=== PATIENT | male | born 1940 | race Caucasian/White ===

== ENCOUNTER → 2016-10-02 | Outpatient (CLI) | payer OTHER, BC ==
[~2016-10-02] MED LIST: AMLODIPINE BESYL5 M1 PO; ASPIR 8181 MG PO; CENTRUM SILVER1 EAC2 PO; FISH OIL 1,001000 M2 PO; GAVISCON ES CH1 EAC1 PO; NORCO 5-325 TA1 EACH PO; PRAVACHOL20 MG PO; RYTHMOL SR225 MG PO; SENOKOT-S1 TA1 PO; VITAMINC500 PO
[2016-10-02 08:07] LABS: CREATININE 1.2 mg/dL (0.6-1.3)
== END ==
LOC: CAT 07:25
PROVIDERS: Internal Medicine Cardiovascular Disease
DX: I71.4 Abdominal aortic aneurysm, without rupture (principal)

== ENCOUNTER → 2016-12-23 | Outpatient (CLI) | payer OTHER, BC ==
[2016-12-23 10:07] LABS: CREATININE 1.4 mg/dL (0.7-1.3)
== END ==
LOC: CAT 09:40
PROVIDERS: Nuclear Medicine Nuclear Cardiology
DX: I71.4 Abdominal aortic aneurysm, without rupture (principal); Z95.828 Presence of other vascular implants and grafts

== ENCOUNTER → 2017-01-27 | Outpatient (CLI) | payer OTHER, BC | LOC: ULTRA 09:21 | DX: M79.89 Other specified soft tissue disorders (principal) ==

== ENCOUNTER → 2017-06-29 | Outpatient (CLI) | payer OTHER, BC ==
[2017-06-29 08:58] LABS: CREATININE 1.2 mg/dL (0.7-1.3)
== END ==
LOC: CAT 07:00
PROVIDERS: Nuclear Medicine Nuclear Cardiology
DX: N26.1 Atrophy of kidney (terminal) (principal); I71.4 Abdominal aortic aneurysm, without rupture; Z95.828 Presence of other vascular implants and grafts

== ENCOUNTER → 2018-04-19 | Outpatient (CLI) | payer OTHER, BC | LOC: ULTRA 11:05 | DX: N63.10 Unspecified lump in the right breast, unspecified quadrant (principal); N64.4 Mastodynia ==

== ENCOUNTER → 2018-05-18 | Outpatient (CLI) | payer OTHER, BC ==
[2018-05-18 08:01] LABS: CREATININE 1.4 mg/dL (0.7-1.3)
== END ==
LOC: CAT 07:02
PROVIDERS: Nuclear Medicine Nuclear Cardiology
DX: I71.4 Abdominal aortic aneurysm, without rupture (principal); N26.1 Atrophy of kidney (terminal); N28.0 Ischemia and infarction of kidney; M47.816 Spondylosis without myelopathy or radiculopathy, lumbar region; E78.00 Pure hypercholesterolemia, unspecified; I48.91 Unspecified atrial fibrillation; Z95.828 Presence of other vascular implants and grafts

== ENCOUNTER → 2019-04-07 | Outpatient (CLI) | payer OTHER, BC ==
--- NOTE | ~2019-04-07 | PFR/MVV ---
[facility] [place] [address] PULMONARY FUNCTION MVV/REPORT Name: WANDY BROOKS Room #: [facility]#: [id number] ������������������ Admission: 04/07/19 ������������������ Attend Phys: Allen Whiting MD Discharge: ������������������ Date of : 44 Report #: [id number] THIS REPORT FOR: //name// >> SPIROMETRY: (BTPS) Height: 73 in cm Weight: 178 lbs kg Exam Date: 04/07/19 PRE-RX POST-RX PRED BEST %PRED BEST %PRED %CHG FVC LITERS . 4.66 . 5.21 . 112 . 4.97 . 107 . -5 FEV1 LITERS . 3.02 . 3.72 . 123 . 3.61 . 119 . -3 FEV1/FVC % . 66 . 71 . 108 . 73 . 110 . 2 AKH49-04% L/Sec . 2.52 . 2.32 . 92 . 2.61 . 103 . 13 PEF L/SEC . 8.77 . 9.14 . 104 . 6.96 . 79 . -24 FEF50/FIF50 UNITLESS . . 1.05 . . 1.33 . . 27 MVV L/Min . 130 . 56 . 43 f 1/Min . . 165 . >> LUNG VOLUMES: (BTPS) PRE-RX POST-RX PRED AVG %PRED AVG %PRED %CHG VC Liters . 4.66 . 5.21 . 112 . . . TLC Liters . 7.14 . 8.49 . 119 . . . RV Liters . 2.85 . 3.28 . 115 . . . RV/TLC % . 43 . 39 . 90 . . . FRC [address] Liters . 4.27 . 5.02 . 118 . . . FRC N2 Liters . . . . . . ERV Liters . 1.59 . 1.74 . 109 . . . IC Liters . 3.18 . 2.86 . 90 . . . >> DIFFUSION: DLCO ml/Min/mmHg . 20.4 . 17.3 . 85 . . . DL [place] ml/Min/mmHg . 20.4 . 17.3 . 85 . . . DLCO/VA ml/Min/mmHg . 3.40 . 3.08 . 91 . . . VA Liters . . 5.61 . . . . COMMENTS: COMMENTS: >> RESISTANCE: [facility] [address] [place] [address] PULMONARY FUNCTION MVV/REPORT Name: WANDY BROOKS Room #: [facility]#: [id number] ������������������ Admission: 04/07/19 ������������������ Attend Phys: Allen Whiting MD Discharge: ������������������ Date of : 44 Report #: [id number] PRE-RX PRED AVG %PRED Raw Total cmH20/L/Sec . 2.49 . . Raw Insp cmH20/L/Sec . 3.69 . . Raw Exp cmH20/L/Sec . 3.51 . . Raw cmH20/L/Sec . 1.01 . 1.24 . 122 Gaw L/Sec/cmH20 . 1.024 . 0.809 . 79 sRaw cmH20 Sec . 4.31 . 6.60 . 153 sGaw l/cmH20 Sec . 0.232 . 0.152 . 65 Vtq Liters . . 5.34 . # = OUTSIDE 95% CONFIDENCE INTERVAL CALIBRATION: PRED: 3.00 ACTUAL: EXP 3.01 INSP 3.02 [place] [address] [place] [address] N-1804-4 >> INTERPRETATION/IMPRESSION: CC: ALLEN Whiting DATE OF SERVICE: 04/08/2019 Spirometric examination showed normal flows. There was no significant bronchodilator response. Lung volumes are mildly increased. Diffusion capacity is normal, corrected for alveolar volume. Flow volume loop is not noted. IMPRESSION: Normal pulmonary functions. Increased lung volumes suggest air trapping, clinical correlation is recommended. ��������������������������������������������� ���������������������������������������� By: ��������������������������������������������� Hans Cross MD /nt
== END ==
LOC: PUL 11:36
DX: R06.00 Dyspnea, unspecified (principal)

== ENCOUNTER → 2019-04-12 | Outpatient (CLI) | payer OTHER, BC ==
[2019-04-12 10:52] LABS: HEMATOCRIT 42.5 % (42.0-52.0); HEMOGLOBIN 14.2 gm/dL (14.0-18.0); MCHC 33.5 g/dL (28.0-37.0); MCV 92.4 fL (80.0-100.0); RBC 4.59 mil/uL (4.50-6.00); RDW 14.5 % (10.5-14.5); WBC 4.6 thou/uL (4.0-11.0)
[2019-04-12 11:03] LABS: CALCIUM 8.8 mg/dL (8.5-10.1); CREATININE 1.3 mg/dL (0.7-1.3); POTASSIUM 4.1 mmol/L (3.5-5.1); TOTAL BILIRUBIN 0.6 mg/dL (<0.1-1.0); TOTAL PROTEIN 7.1 g/dL (6.4-8.2)
--- NOTE | 2019-04-13 08:07 | EKG ---
[place] [address] [facility] [place] [address] ELECTROCARDIOGRAM REPORT Name: WANDY BROOKS Room #: [facility]#: [id number] ������������������ Admission: 04/12/19 ������������������ Attend Phys: Romero Sweeney MD, F Discharge: ������������������ Date of : 44 Report #: [id number] ����������������������������������������������������������������� [id number] THIS REPORT FOR: //name// [facility] Test Date: 2019-04-12 Test Time: 11:01:52 Pat Name: WANDY BROOKS Department: Room: Gender: Personnel Monitor: [facility] : 1940 Requested By: Romero Sweeney Order Number: [id number] MD: Chapincito Caceres Measurements Intervals [place] Rate: 53 P: 6 MI: 241 QRS: -61 QRSD: 131 T: 34 QT: 455 QTc: 428 Interpretive Statements Sinus rhythm Prolonged MI interval RBBB and LAFB Compared to ECG 11/15/2016 17:59:49 First degree AV block now present Electronically Signed On 04-13-2019 8:06:57 CDT by Chapincito Caceres [email or web address] ��������������������������������������������� <ELECTRONICALLY SIGNED> ���������������������������������������� By: Chapincito Caceres MD, [facility] ��������������������������������������������� 04/13/19 0806 1101 00 Chapincito Caceres MD, [facility] /EPI
== END ==
LOC: LAB 10:24
PROVIDERS: Surgery
DX: Z01.818 Encounter for other preprocedural examination (principal); I44.4 Left anterior fascicular block; I45.10 Unspecified right bundle-branch block; I44.0 Atrioventricular block, first degree

== ENCOUNTER → 2019-04-19 | Outpatient (CLI) | payer OTHER, BC ==
[2019-04-19 08:25] LABS: CREATININE 1.4 mg/dL (0.7-1.3)
== END ==
LOC: CV 06:31
PROVIDERS: Surgery
DX: Z01.818 Encounter for other preprocedural examination (principal); I77.810 Thoracic aortic ectasia; K76.89 Other specified diseases of liver; N26.1 Atrophy of kidney (terminal); R91.1 Solitary pulmonary nodule; J98.4 Other disorders of lung; N28.89 Other specified disorders of kidney and ureter; N20.0 Calculus of kidney; N62 Hypertrophy of breast; M47.814 Spondylosis without myelopathy or radiculopathy, thoracic region

== ENCOUNTER 2019-05-02 08:13 | Day surgery (SDC) | payer OTHER, BC ==
[~2019-05-02] VITALS: Ht 185.4 cm; Wt 80.7 kg
--- NOTE | ~2019-05-02 | O ---
[facility] [place] [address] OPERATIVE REPORT Name: WANDY BROOKS Room #: 150-10 [facility]#: [id number] Admission: 05/02/19 Attend Phys: Romero Sweeney MD, F Discharge: Date of : 44 Report #: [id number] THIS REPORT FOR: //name// CC: Allen Sweeney DATE OF SERVICE: 05/02/2019 SURGEON: Romero Sweeney MD SOLE SEWER HAND: Jaja Page. PREOPERATIVE DIAGNOSES: Recurrent left inguinal hernia, possible recurrent right inguinal hernia. POSTOPERATIVE DIAGNOSIS: Recurrent indirect left inguinal hernia (no evidence for a recurrent right inguinal hernia). PROCEDURE: Laparoscopic repair of recurrent indirect inguinal hernia with ProGrip mesh. ANESTHESIA: General endotracheal anesthesia and local anesthetic. ESTIMATED BLOOD LOSS: 5 mL. SPECIMEN: None. COMPLICATIONS: None appreciated. INDICATIONS FOR PROCEDURE: This is a 78-year-old male patient of Dr. Allen Whiting, who presented with left groin pain from her recurrent left inguinal hernia. The patient underwent a hernia repair many years ago. The patient notes having a bulge more recently and pain is present when the hernia is bulging. He has worsened pain with strenuous activity/lifting/increased intra-abdominal. He denies a change in his bowel habits. He presents today for laparoscopic repair of his recurrent left inguinal hernia. The right preperitoneal space will be explored as well to rule out and possibly repair a recurrent right inguinal hernia. OPERATIVE FINDINGS: The patient had evidence for a recurrent indirect left inguinal hernia with no evidence for a femoral or direct hernia. There was no evidence for a right inguinal hernia. After final placement of the ProGrip mesh, there was good coverage of the defect with good medialization of the mesh and minimal rippling of the edges of the mesh. [address] [address] OPERATIVE REPORT Name: WANDY BROOKS Room #: 150-10 [facility]#: [id number] Admission: 05/02/19 Attend Phys: Romero Sweeney MD, F Discharge: Date of : 44 Report #: [id number] DESCRIPTION OF PROCEDURE IN DETAIL: After the risks, benefits and expectations of the operation were discussed in detail with the patient, informed consent was obtained. The patient was identified in preoperative holding area. He was given IV antibiotics as documented in the chart in line with SCIP metrics. The patient was then taken to the operating room and he was placed in the supine position. SCDs were placed on the patient's bilateral lower extremities and pneumatic compression was initiated. The patient was then given IV sedation and he was intubated without incident. His abdomen, groins and genitalia were prepped and draped in standard sterile fashion. A time-out was performed to identify the correct patient and procedure. Local anesthetic was infiltrated into the skin and subcutaneous tissue infraumbilically where a curvilinear incision was made with #15 blade scalpel favoring the left side. Dissection was carried down to the left anterior rectus sheath fascia. The fascia was opened transversely. The underlying left rectus abdominis muscle was swept laterally. The Spacemaker port was then advanced within the preperitoneal space toward the pubic tubercle with gentle sweeping motions. The obturator was removed and the cuff was inflated. The Spacemaker balloon was then inflated under direct visualization with the 0-degree angled laparoscope. After adequate inflation/dissection, the balloon was deflated and removed and the preperitoneal space was insufflated with carbon dioxide to 15 mmHg. The patient was placed in the Trendelenburg position. Additional 5 mm ports were placed in the lower midline through small transverse incisions after local anesthetic was infiltrated into the skin and subcutaneous tissue and appropriately sized incisions were made. The left preperitoneal space was explored first. The landmarks were identified including the pubic tubercle and spermatic cord and peritoneum. The peritoneum was dissected off of the anterior abdominal wall. The spermatic cord was then identified and the hernia sac adjacent to the spermatic cord was carefully dissected away from the spermatic cord. In doing so, the peritoneum that extended into the recurrent indirect left inguinal defect was dissected free. After fully reducing the herniated content, the space was explored to ensure no evidence for a femoral or direct inguinal hernia. The ProGrip mesh was then tailored on the backtable, then rolled and placed within the preperitoneal space through the Spacemaker port. The mesh was unrolled in a scroll-down fashion with the adherent side against the abdominal wall. There was good coverage of the defect and no significant rippling of the mesh. The mesh extended to the midline. The right preperitoneal space was explored next. The peritoneum was dissected off of the abdominal wall with appropriate traction and judicious use of electrocautery. Scar tissue was seen extending up to the abdominal wall. This was determined to be scar tissue and peritoneum. 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 After taking down the scar tissue, there was no evidence for a recurrent right [address] [address] OPERATIVE REPORT Name: WANDY BROOKS Room #: 150-10 [facility]#: [id number] Admission: 05/02/19 Attend Phys: Romero Sweeney MD, F Discharge: Date of : 44 Report #: [id number] inguinal defect. The preperitoneal space was desufflated and the ports were removed. A 5-mm port was placed intraperitoneally through the infraumbilical incision to desufflate the abdominal cavity. After doing so, the port was removed. The port site fascial opening was closed with interrupted [id number] PDS sutures x 2. Local anesthetic was infiltrated subfascially. Interrupted subcuticular 4-0 Monocryl sutures and Dermabond were used to close the skin incisions. The incisions were then closed with interrupted subcuticular 4-0 Monocryl sutures and Dermabond. Tegaderm was also placed over the inferior most incision. The patient tolerated the procedure well. He was awakened, extubated and taken to recovery room in stable condition with no apparent intraoperative complications. By: [id number] Romero Sweeney MD, FACS /nt
[~2019-05-02 08:13] MED LIST changes: +COLACE100 MG PO; +GAVISCON TABLE1 EACH PO; +MIRALAX17 GM PO; +NORVASC2.5 MG PO; +PROPAFENONE HC325 M1 PO; +SILODOSIN8 MG PO; +SYNTHROID75 MCG PO
[2019-05-02 08:51] LABS: HEMATOCRIT 39.4 % (42.0-52.0); HEMOGLOBIN 13.5 gm/dL (14.0-18.0)
[2019-05-02 09:11] VITALS: BP 153/75
[2019-05-02] MEDS ORDERED: SENNA-S TABLET1 EACH PO (11:30)
[2019-05-02] MEDS ORDERED: NORCO 5-325 TA1 EAC1 PO (11:30)
[2019-05-02] MEDS ORDERED: NEURONTIN 300300 M1 PO (11:30)
== END 2019-05-02 13:00 | disposition home or self-care (01) ==
LOC: OR 08:13 → TBA 10:05 → OR 13:00
PROVIDERS: Surgery
DX: K40.91 Unilateral inguinal hernia, without obstruction or gangrene, recurrent (principal); I10 Essential (primary) hypertension; I48.91 Unspecified atrial fibrillation; E78.5 Hyperlipidemia, unspecified; K21.9 Gastro-esophageal reflux disease without esophagitis; Z98.890 Other specified postprocedural states; Z79.01 Long term (current) use of anticoagulants; Z87.891 Personal history of nicotine dependence; Z98.41 Cataract extraction status, right eye; Z98.42 Cataract extraction status, left eye; Z79.899 Other long term (current) drug therapy; Z88.8 Allergy status to other drugs, medicaments and biological substances
CPT/HCPCS: 50010; 50101; 50249; 50411; 50555; 50944; 51824; 52265; 52266; 54118; 54169; 56525; 56526; 62110; 62900; 70005

== ENCOUNTER → 2019-05-24 | Outpatient (CLI) | payer OTHER, BC ==
[~2019-05-24] MED LIST changes: +NEURONTIN 300300 M1 PO; +NORCO 5-325 TA1 EAC1 PO; +SENNA-S TABLET1 EACH PO
[2019-05-24 09:08] LABS: CREATININE 1.4 mg/dL (0.7-1.3)
== END ==
LOC: CAT 08:33
PROVIDERS: Nuclear Medicine Nuclear Cardiology
DX: I71.4 Abdominal aortic aneurysm, without rupture (principal); R91.1 Solitary pulmonary nodule; M47.814 Spondylosis without myelopathy or radiculopathy, thoracic region; M47.816 Spondylosis without myelopathy or radiculopathy, lumbar region; N26.1 Atrophy of kidney (terminal); N28.0 Ischemia and infarction of kidney; Z95.828 Presence of other vascular implants and grafts

== ENCOUNTER → 2019-11-03 | Outpatient (CLI) | payer OTHER, BC | LOC: SJCVCIMAG 08:56 | DX: I35.1 Nonrheumatic aortic (valve) insufficiency (principal); I71.4 Abdominal aortic aneurysm, without rupture; E78.00 Pure hypercholesterolemia, unspecified; I48.0 Paroxysmal atrial fibrillation; I10 Essential (primary) hypertension; Z98.890 Other specified postprocedural states; Z86.79 Personal history of other diseases of the circulatory system ==

== ENCOUNTER → 2020-05-14 | Outpatient (CLI) | payer OTHER, BC ==
[2020-05-14 09:16] LABS: CREATININE 1.4 mg/dL (0.7-1.3)
== END ==
LOC: CAT 07:53
PROVIDERS: ATTEND Internal Medicine Cardiovascular Disease
DX: I71.4 Abdominal aortic aneurysm, without rupture (principal); I70.1 Atherosclerosis of renal artery; N28.89 Other specified disorders of kidney and ureter; R91.1 Solitary pulmonary nodule; Z95.828 Presence of other vascular implants and grafts; M47.816 Spondylosis without myelopathy or radiculopathy, lumbar region; M47.814 Spondylosis without myelopathy or radiculopathy, thoracic region

== ENCOUNTER → 2020-05-29 | Outpatient (CLI) | payer OTHER, BC | LOC: SJCVCIMAG 07:27 | PROVIDERS: ATTEND Nuclear Medicine Nuclear Cardiology | DX: I65.23 Occlusion and stenosis of bilateral carotid arteries (principal); I71.4 Abdominal aortic aneurysm, without rupture; I73.9 Peripheral vascular disease, unspecified; I48.0 Paroxysmal atrial fibrillation; K55.1 Chronic vascular disorders of intestine; E78.00 Pure hypercholesterolemia, unspecified; N26.1 Atrophy of kidney (terminal); Z98.890 Other specified postprocedural states; Z79.899 Other long term (current) drug therapy; Z87.891 Personal history of nicotine dependence; Z86.79 Personal history of other diseases of the circulatory system ==

== ENCOUNTER → 2021-03-22 | Outpatient (CLI) | payer OTHER, BC | LOC: ULTRA 08:16 | PROVIDERS: ATTEND Family Medicine | DX: K76.89 Other specified diseases of liver (principal); N28.89 Other specified disorders of kidney and ureter; N26.1 Atrophy of kidney (terminal); R10.32 Left lower quadrant pain ==

== ENCOUNTER → 2021-04-12 | Outpatient (CLI) | payer OTHER, BC ==
[2021-04-12 11:02] LABS: CREATININE 1.4 mg/dL (0.7-1.3)
== END ==
LOC: CAT 09:28
PROVIDERS: ATTEND Family Medicine
DX: N26.1 Atrophy of kidney (terminal) (principal); N28.9 Disorder of kidney and ureter, unspecified

== ENCOUNTER → 2021-04-17 | Outpatient (CLI) | payer OTHER, BC ==
[2021-04-17 09:26] LABS: CREATININE 1.4 mg/dL (0.7-1.3)
== END ==
LOC: CAT 08:05 → LAB 08:05
PROVIDERS: ATTEND Nuclear Medicine Nuclear Cardiology
DX: I77.4 Celiac artery compression syndrome (principal); N28.0 Ischemia and infarction of kidney; K76.89 Other specified diseases of liver; N26.1 Atrophy of kidney (terminal); I71.4 Abdominal aortic aneurysm, without rupture; Z95.828 Presence of other vascular implants and grafts

== ENCOUNTER → 2021-05-29 | Outpatient (CLI) | payer OTHER, BC | LOC: SJCVCIMAG 07:39 | PROVIDERS: ATTEND Nuclear Medicine Nuclear Cardiology | DX: I65.23 Occlusion and stenosis of bilateral carotid arteries (principal); I71.4 Abdominal aortic aneurysm, without rupture; I48.0 Paroxysmal atrial fibrillation; I10 Essential (primary) hypertension; K55.1 Chronic vascular disorders of intestine; D04.4 Carcinoma in situ of skin of scalp and neck; E78.00 Pure hypercholesterolemia, unspecified; Z82.49 Family history of ischemic heart disease and other diseases of the circulatory system; Z87.891 Personal history of nicotine dependence; Z79.82 Long term (current) use of aspirin; Z79.899 Other long term (current) drug therapy; Z88.8 Allergy status to other drugs, medicaments and biological substances ==